=== PATIENT | male | born 1955 | race African-American/Black ===

== ENCOUNTER 2016-12-24 11:27 | Emergency (ER) | payer SELFPAY ==
[~2016-12-24] VITALS: Ht 180.3 cm; Wt 140.0 kg
[~2016-12-24 11:27] MED LIST: ZOFR4TAB3 SL
[2016-12-24 11:29] VITALS: BP 195/106; PULSE 92; RESP 20; TEMP 98.9; O2SAT 97
--- NOTE | 2016-12-24 11:38 | PD ---
Physical Exam Time Seen by Provider: 11:37 Narrative Pt presents to the ED for evaluation of left leg swelling for 1 week. Also has some pain in the leg. States he thinks it is related to medication. VSS. Patient awaiting bed placement. Data Data Last Documented VS Vital Signs Date Time Temp Pulse Resp B/P Pulse Ox O2 Delivery O2 Flow Rate FiO2 12/24/16 11:29 98.9 92 20 195/106 97 Room Air MDM Supervised Visit with JESSICA: America Cota Dec 24, 2016 11:37
[2016-12-24] MEDS ORDERED: METF500T PO (11:54)
[2016-12-24] MEDS ORDERED: LOSA50TA PO (11:54)
[2016-12-24] MEDS ORDERED: ALLO300T2 PO (11:54)
--- NOTE | 2016-12-24 12:03 | PD ---
HPI Chief Complaint: Edema Time Seen by Provider: 12:03 Travel History International Travel<30 days: No Contact w/Intl Traveler<30days: No Traveled to known affect area: No History of Present Illness HPI 61-year-old male presents to the ED for evaluation of 1 week history of left leg pain and swelling. Gradual onset. Patient states that the leg feels hot. He denies numbness, tingling, weakness, limitations to range of motion of the extremity. He denies chest pain, shortness of breath, palpitations. He can identify no acute injury. He thought it was related to gout. States that he recently changed blood pressure medications and thought it might be related to this. No treatment attempted at home. PFSH Past Medical History Cardiovascular Problems: Yes (HTN) Diabetes: Yes (TYPE II ) Patient Takes Glucophage: Yes (METFORMIN ) Gout: Yes Hypertension: Yes Past Surgical History Genitourinary Surgery: Yes (SCROTAL) Social History Alcohol Use: No Tobacco Use: Yes (1/2 PPD) Substance Use: No Allergies-Medications (Allergen,Severity, Reaction): Coded Allergies: No Known Allergies (Unverified , 12/24/16) Reported Meds & Prescriptions Reported Meds & Active Scripts Active Clindamycin (Clindamycin HCl) 150 Mg Cap 450 Mg PO Q8HR 7 Days Reported Losartan (Losartan Potassium) 50 Mg Tab 50 Mg PO DAILY Allopurinol 300 Mg Tab 300 Mg PO DAILY Metformin (Metformin HCl) 500 Mg Tab 500 Mg PO BIDPC With meals Review of Systems Except as stated in HPI: all other systems reviewed are Neg Physical Exam Narrative GENERAL: Well-nourished, well-developed pleasant, obese black male in no acute distress. SKIN: Focused skin assessment warm/dry. 1-2cm patch of healing crusts on the posterior aspect of the left calf. Nontender. No active bleeding. No discharge. HEAD: Normocephalic. EYES: No scleral icterus. No injection or drainage. NECK: Supple, trachea midline. No JVD or lymphadenopathy. CARDIOVASCULAR: Regular rate and rhythm without murmurs, gallops, or rubs. RESPIRATORY: Breath sounds clear and equal bilaterally. No accessory muscle use. GASTROINTESTINAL: Abdomen protuberant, soft, non-tender, nondistended. MUSCULOSKELETAL: No cyanosis, or edema. FOCUSED LEFT LOWER EXTREMITY EXAM: 2+ DP pulse. 2+ edema to the knee. The leg is erythematous, warm and tender. Homans sign positive. Neurovascularly intact. BACK: Nontender without obvious deformity. No CVA tenderness. Data Data Last Documented VS Vital Signs Date Time Temp Pulse Resp B/P Pulse Ox O2 Delivery O2 Flow Rate FiO2 12/24/16 12:55 97 Room Air 12/24/16 11:29 98.9 92 20 195/106 Orders Complete Blood Count With Diff (12/24/16 12:10) Comprehensive Metabolic Panel (12/24/16 12:10) B-Type Natriuretic Peptide (12/24/16 12:10) Act Partial Throm Time (Ptt) (12/24/16 12:10) Prothrombin Time / Inr (Pt) (12/24/16 12:10) Urinalysis - C+S If Indicated (12/24/16 12:10) Iv Access Insert/Monitor (12/24/16 12:10) Ecg Monitoring (12/24/16 12:10) Oximetry (12/24/16 12:10) Us Leg Venous Doppler (12/24/16 12:10) Sodium Chloride 0.9% Flush (Ns Flush) (12/24/16 12:15) Morphine Inj (Morphine Inj) (12/24/16 12:15) Sodium Chlorid 0.9% 500 Ml Inj (Ns 500 M (12/24/16 12:15) Clindamycin (Cleocin) (12/24/16 15:15) Labs Laboratory Tests Test 12/24/16 12:45 White Blood Count 9.9 TH/MM3 Red Blood Count 4.67 MIL/MM3 Hemoglobin 14.4 GM/DL Hematocrit 42.3 % Mean Corpuscular Volume 90.6 FL Mean Corpuscular Hemoglobin 30.9 PG Mean Corpuscular Hemoglobin 34.1 % Concent Red Cell Distribution Width 13.8 % Platelet Count 264 TH/MM3 Mean Platelet Volume 8.2 FL Neutrophils (%) (Auto) 65.4 % Lymphocytes (%) (Auto) 23.3 % Monocytes (%) (Auto) 8.0 % Eosinophils (%) (Auto) 2.6 % Basophils (%) (Auto) 0.7 % Neutrophils # (Auto) 6.5 TH/MM3 Lymphocytes # (Auto) 2.3 TH/MM3 Monocytes # (Auto) 0.8 TH/MM3 Eosinophils # (Auto) 0.3 TH/MM3 Basophils # (Auto) 0.1 TH/MM3 CBC Comment DIFF FINAL Differential Comment Prothrombin Time 10.7 SEC Prothromb Time International 1.0 RATIO Ratio Activated Partial 28.0 SEC Thromboplast Time Sodium Level 140 MEQ/L Potassium Level 3.7 MEQ/L Chloride Level 105 MEQ/L Carbon Dioxide Level 29.1 MEQ/L Anion Gap 6 MEQ/L Blood Urea Nitrogen 12 MG/DL Creatinine 1.03 MG/DL Estimat Glomerular Filtration 90 ML/MIN Rate Random Glucose 119 MG/DL Calcium Level 8.7 MG/DL Total Bilirubin 0.3 MG/DL Aspartate Amino Transf 17 U/L (AST/SGOT) Alanine Aminotransferase 22 U/L (ALT/SGPT) Alkaline Phosphatase 82 U/L B-Type Natriuretic Peptide 32 PG/ML Total Protein 7.6 GM/DL Albumin 2.8 GM/DL MDM Medical Decision Making Medical Screen Exam Complete: Yes Emergency Medical Condition: Yes Differential Diagnosis Cellulitis versus DVT versus dependent edema versus gout flare versus other Narrative Course 61-year-old male with PMH of DM, HTN, gout presents to the ED for evaluation of 1 week history of left leg pain and swelling. Gradual onset. Patient states that the leg feels hot. He can identify no acute injury. He thought it was related to gout or maybe his recently changed blood pressure medications. Vitals reviewed. Patient is hypertensive in triage but this resolves in the exam room. Physical exam reveals the left leg is warm, erythematous, edematous and the Homans sign is positive. There is a few well healed subcentimeter crusts on the posterior aspect of the leg. These do not look actively infected themselves but I suspect this is the source of the cellulitis. CBC, CMP, UA unremarkable. Ultrasound of the lower extremity negative for DVT. This is cellulitis of the extremity. Patient is instructed to keep the leg elevated. He is prescribed a course of clindamycin, first dose administered in the ED. He is instructed to follow up either here or at the [facility] in 48 hours for recheck. The patient indicated understanding of the instructions and is agreeable to the care plan. He is stable and discharged home. Diagnosis Primary Impression: Cellulitis of left lower extremity without foot Referrals: Primary Care Physician Patient Instructions: Cellulitis (ED), General Instructions Additional Instructions: Rest, hydrate. Keep the affected leg elevated as much as possible. Take antibiotics as they are prescribed, even if your symptoms resolved. [facility]. Return to the ED for any urgent or emergent medical condition. Med/Other Pt SpecificInfo: Prescription(s) given Scripts Clindamycin 150 Mg [id number] Mg PO Q8HR 7 Days Ref 0 Prov:Cecilia Cunningham MD 12/24/16 Disposition: 01 DISCHARGE HOME Condition: Stable Salome Gatica Dec 24, 2016 12:03
[2016-12-24] MEDS ORDERED: SODIUM CHLORIDE 0.9% FLUSH 10 ML FLUSH IVF PRN (12:15)
[2016-12-24] MEDS ORDERED: MORPHINE SULFATE 4 MG/ML INJ IV PUSH ONE (12:15)
[2016-12-24] MEDS ORDERED: SODIUM CHLORID 0.9% 500 ML INJ 500 ML IV ONE (12:15)
[2016-12-24 12:55] VITALS: O2SAT 97
--- NOTE | 2016-12-24 13:29 | RADRPT ---
EXAM DATE/TIME: 12/24/2016 12:40 [facility] COMPARISON: No previous studies available for comparison. INDICATIONS : Left leg edema and pain. MEDICAL HISTORY : Hypertension. Diabetes mellitus type 2. Gout. Tobacco use. SURGICAL HISTORY : Scrotal surgery. ENCOUNTER: Initial ACUITY: 1 week PAIN SCORE: 5/10 LOCATION: Left leg. TECHNIQUE: Venous ultrasound of the leg was performed from the inguinal ligament to the proximal calf. Real-ruthie e, color Doppler and spectral tracing, compression and augmentation techniques were used. FINDINGS: There is normal compressibility of the deep venous system from the inguinal region to the proximal ca lf. No echogenic clot is seen in the lumen of the common femoral, femoral, popliteal, and posterior tibial veins. There is a normal response of the venous system to proximal and distal augmentation an d respiration. There is nonspecific mildly prominent lymph nodes in the left groin. Largest measures 3.7 x 1.6 cm. CONCLUSION: No evidence of DVT. Juanpablo Schuster MD on December 24, 2016 at 13:26 Board Certified Radiologist. This report was verified electronically.
[2016-12-24 13:42] LABS: AUTOMATED NEUTROPHIL # 6.5 TH/MM3 (1.8-7.7); BASOPHIL # 0.1 TH/MM3 (0-0.2); BASOPHIL % 0.7 % (0.0-2.0); EOSINOPHIL # 0.3 TH/MM3 (0-0.4); EOSINOPHIL % 2.6 % (0.0-4.0); HEMATOCRIT 42.3 % (39.0-51.0); HEMO FLAGS DIFF FINAL; LYMPH % 23.3 % (9.0-44.0); LYMPHOCYTE # 2.3 TH/MM3 (1.0-4.8); MEAN CELL VOLUME 90.6 FL (80.0-100.0); MEAN CORPUSCULAR HEMOGLOBIN 30.9 PG (27.0-34.0); MEAN CORPUSCULAR HGB CONC 34.1 % (32.0-36.0); NEUT % 65.4 % (16.0-70.0); PLATELET COUNT 264 TH/MM3 (150-450); RED BLOOD COUNT 4.67 MIL/MM3 (4.50-5.90); RED CELL DISTRIBUTION WIDTH 13.8 % (11.6-17.2); WHITE BLOOD COUNT 9.9 TH/MM3 (4.0-11.0)
[2016-12-24 13:52] LABS: PROTHROMBIN TIME - PATIENT 10.7 SEC (9.8-11.6)
[2016-12-24 13:56] LABS: ANION GAP 6 MEQ/L (5-15); AST (GOT) 17 U/L (15-37); BICARBONATE 29.1 MEQ/L (21.0-32.0); BLOOD UREA NITROGEN 12 MG/DL (7-18); CHLORIDE 105 MEQ/L (98-107); GLOMERULAR FILTRATION RATE 90 ML/MIN (>89); POTASSIUM 3.7 MEQ/L (3.5-5.1); SODIUM (NA) 140 MEQ/L (136-145)
[2016-12-24 13:57] LABS: ALT (GPT) 22 U/L (12-78)
[2016-12-24 13:59] LABS: ALKALINE PHOSPHATASE 82 U/L (45-117); TOTAL BILIRUBIN ADULT 0.3 MG/DL (0.2-1.0)
[2016-12-24] MEDS ORDERED: SULFAMETHOXAZOLE-TRIMETHOPRIM DS 800-160 MG TAB PO ONE (15:00)
[2016-12-24] MEDS ORDERED: CEPHALEXIN MONOHYDRATE 500 MG CAP PO ONE (15:00)
[2016-12-24] MEDS ORDERED: CLIN1CAP5 PO (15:06)
[2016-12-24] MEDS ORDERED: CLINDAMYCIN 150 MG CAP PO SCH (15:15)
[2016-12-24] MEDS ORDERED: CLINDAMYCIN 150 MG CAP PO ONE (15:15)
[2016-12-24 15:30] VITALS: BP 122/73; PULSE 83
== END 2016-12-24 15:42 | disposition home or self-care (01) ==
LOC: NEPE 11:27
DX: L03.116 Cellulitis of left lower limb (principal); I10 Essential (primary) hypertension; E11.9 Type 2 diabetes mellitus without complications; F17.210 Nicotine dependence, cigarettes, uncomplicated; M10.9 Gout, unspecified
CPT/HCPCS: 80053; 83880; 85025; 85610; 85730; 93971

== ENCOUNTER 2017-01-11 10:41 | Emergency (ER) | payer OTHER ==
[~2017-01-11] VITALS: Ht 177.8 cm; Wt 160.0 kg
[~2017-01-11 10:41] MED LIST changes: +ALLO300T2 PO; +CLIN1CAP5 PO; +LOSA50TA PO; +METF500T PO; -ZOFR4TAB3 SL
[2017-01-11 10:43] VITALS: BP 198/100; PULSE 80; RESP 16; TEMP 98.4; O2SAT 95
[2017-01-11 10:49] VITALS: BP 165/80; TEMP 99.5
[2017-01-11] MEDS ORDERED: SODIUM CHLOR 0.9% 1000 ML INJ 1,000 ML IV SCH (11:21)
--- NOTE | 2017-01-11 11:28 | PD ---
HPI Chief Complaint: Skin Problem Time Seen by Provider: 11:15 Travel History International Travel<30 days: No Contact w/Intl Traveler<30days: No Traveled to known affect area: No History of Present Illness HPI This is a 61-year-old male with history of hypertension, diabetes, gout, presents for evaluation of left lower extremity pain and itching. Symptoms started 3 weeks ago. There is no injury. He believes that he may been bitten by a bug to the posterior proximal calf however he does not remember any bug bites or puncture wounds. The patient was seen for evaluation of this issue in December 24 and diagnosed with cellulitis. He is discharged with clindamycin for 7 days. He completed the antibiotics as scheduled. Initially symptoms seem to be improving over the past several days symptoms have worsened which prompted evaluation today. He has not had any fevers, chills or myalgias at home. He denies any chest pain, shortness of breath, nausea or vomiting, diarrhea or constipation, recent travel. [facility] No other complaints. PFSH Past Medical History Cardiovascular Problems: Yes (HTN) Diabetes: Yes Gout: Yes Hypertension: Yes Past Surgical History Genitourinary Surgery: Yes (SCROTAL) Social History Alcohol Use: No Tobacco Use: Yes (06/23 PPD) Substance Use: No Allergies-Medications (Allergen,Severity, Reaction): Coded Allergies: No Known Allergies (Unverified , 12/24/16) Reported Meds & Prescriptions Reported Meds & Active Scripts Active Doxycycline Hyclate 100 Mg Cap 100 Mg PO BID Reported Losartan (Losartan Potassium) 50 Mg Tab 50 Mg PO DAILY Allopurinol 300 Mg Tab 300 Mg PO DAILY Metformin (Metformin HCl) 500 Mg Tab 500 Mg PO BIDPC With meals Review of Systems Except as stated in HPI: all other systems reviewed are Neg Physical Exam Narrative GENERAL: Well-developed well-nourished male in no acute distress. SKIN: Warm and dry. The left calf and pretibial region is somewhat indurated and erythematous. There is dry cracking skin. There is areas of excoriation secondary to scratching. There is no fluctuance or purulent drainage. There is no tenderness to palpation to the thigh, knee, ankle or foot. HEAD: Atraumatic. Normocephalic. EYES: Pupils equal and round. No scleral icterus. No injection or drainage. ENT: No nasal bleeding or discharge. Mucous membranes pink and moist. NECK: Trachea midline. No JVD. CARDIOVASCULAR: Regular rate and rhythm. No murmur appreciated. RESPIRATORY: No accessory muscle use. Clear to auscultation. Breath sounds equal bilaterally. GASTROINTESTINAL: Abdomen soft, non-tender, nondistended. MUSCULOSKELETAL: No obvious deformities. Skin as noted above. 2+ dorsalis pedis pulse bilaterally. NEUROLOGICAL: Awake and alert. No obvious cranial nerve deficits. Motor grossly within normal limits. Normal speech. Data Data Last Documented VS Vital Signs Date Time Temp Pulse Resp B/P Pulse Ox O2 Delivery O2 Flow Rate FiO2 01/11/17 10:49 99.5 165/80 01/11/17 10:43 80 16 95 Orders Complete Blood Count With Diff (01/11/17 11:21) Comprehensive Metabolic Panel (01/11/17 11:21) Lactic Acid Sepsis Protocol (01/11/17 11:21) Blood Culture (01/11/17 11:21) Creatine Kinase (Cpk) (01/11/17 11:21) Iv Access Insert/Monitor (01/11/17 11:21) Sodium Chlor 0.9% 1000 Ml Inj (Ns 1000 M (01/11/17 11:21) Doxycycline (Vibramycin) (01/11/17 12:45) Labs Laboratory Tests Test 01/11/17 11:38 White Blood Count 6.2 TH/MM3 Red Blood Count 4.48 MIL/MM3 Hemoglobin 13.8 GM/DL Hematocrit 41.2 % Mean Corpuscular Volume 91.9 FL Mean Corpuscular Hemoglobin 30.8 PG Mean Corpuscular Hemoglobin 33.5 % Concent Red Cell Distribution Width 14.3 % Platelet Count 212 TH/MM3 Mean Platelet Volume 7.5 FL Neutrophils (%) (Auto) 57.4 % Lymphocytes (%) (Auto) 28.7 % Monocytes (%) (Auto) 9.3 % Eosinophils (%) (Auto) 3.9 % Basophils (%) (Auto) 0.7 % Neutrophils # (Auto) 3.6 TH/MM3 Lymphocytes # (Auto) 1.8 TH/MM3 Monocytes # (Auto) 0.6 TH/MM3 Eosinophils # (Auto) 0.2 TH/MM3 Basophils # (Auto) 0.0 TH/MM3 CBC Comment DIFF FINAL Differential Comment Sodium Level 139 MEQ/L Potassium Level 3.8 MEQ/L Chloride Level 101 MEQ/L Carbon Dioxide Level 30.5 MEQ/L Anion Gap 8 MEQ/L Blood Urea Nitrogen 8 MG/DL Creatinine 0.96 MG/DL Estimat Glomerular Filtration 97 ML/MIN Rate Random Glucose 133 MG/DL Lactic Acid Level 1.2 mmol/L Calcium Level 8.6 MG/DL Total Bilirubin 0.4 MG/DL Aspartate Amino Transf 15 U/L (AST/SGOT) Alanine Aminotransferase 18 U/L (ALT/SGPT) Alkaline Phosphatase 90 U/L Total Creatine Kinase 168 U/L Total Protein 8.3 GM/DL Albumin 2.7 GM/DL [facility] Medical Decision Making Medical Screen Exam Complete: Yes Emergency Medical Condition: Yes Medical Record Reviewed: Yes Differential Diagnosis Cellulitis, venous stasis dermatitis, myositis, dependent edema, contact dermatitis, DVT Narrative Course 61-year-old male presents with persistent pain and itching to the skin of the left lower extremity. Initially he was seeing some improvement during a 70 course of clindamycin however symptoms have worsened since then. In triage his temperature was 99.5.. His chart records from his visit on December 24. He had an ultrasound which was negative for DVT. His labwork was unremarkable. Plan today is for basic lab work, IV fluids, blood cultures. Lab work is unremarkable. At this point in time the plan would be to treat the patient with a longer course of antibiotics. He was offered admission given his worsening symptoms despite outpatient therapy argues declininghe reports that his is at another hospital being admitted for stroke. He is encouraged to follow-up with his primary care physician in 2-3 days for recheck and return for any worsening symptoms. He is being discharged with a 14 day course of doxycycline. Diagnosis Primary Impression: Cellulitis of left lower extremity without foot Additional Instructions: Take antibiotic as prescribed. Benadryl for itching. Avoid scratching. Keep the skin clean. Return for any new or worsening symptoms such as worsening swelling, worsening redness, fevers. Med/Other Pt SpecificInfo: Prescription(s) given Scripts Doxycycline Hyclate 100 Mg [id number] Mg PO BID #28 CAP Ref 0 Prov:Codi Ambriz MD 01/11/17 Disposition: 01 DISCHARGE HOME Condition: Stable Dakota Edmond Jan 11, 2017 11:28
[2017-01-11 12:05] LABS: AUTOMATED NEUTROPHIL # 3.6 TH/MM3 (1.8-7.7); BASOPHIL % 0.7 % (0.0-2.0); EOSINOPHIL # 0.2 TH/MM3 (0-0.4); EOSINOPHIL % 3.9 % (0.0-4.0); HEMATOCRIT 41.2 % (39.0-51.0); HEMO FLAGS DIFF FINAL; LYMPH % 28.7 % (9.0-44.0); LYMPHOCYTE # 1.8 TH/MM3 (1.0-4.8); MEAN CELL VOLUME 91.9 FL (80.0-100.0); MEAN CORPUSCULAR HEMOGLOBIN 30.8 PG (27.0-34.0); MEAN CORPUSCULAR HGB CONC 33.5 % (32.0-36.0); MONO % 9.3 % (0.0-8.0); NEUT % 57.4 % (16.0-70.0); PLATELET COUNT 212 TH/MM3 (150-450); RED BLOOD COUNT 4.48 MIL/MM3 (4.50-5.90); RED CELL DISTRIBUTION WIDTH 14.3 % (11.6-17.2); WHITE BLOOD COUNT 6.2 TH/MM3 (4.0-11.0)
[2017-01-11 12:29] LABS: ALT (GPT) 18 U/L (12-78); ANION GAP 8 MEQ/L (5-15); AST (GOT) 15 U/L (15-37); BICARBONATE 30.5 MEQ/L (21.0-32.0); BLOOD UREA NITROGEN 8 MG/DL (7-18); CHLORIDE 101 MEQ/L (98-107); GLOMERULAR FILTRATION RATE 97 ML/MIN (>89); POTASSIUM 3.8 MEQ/L (3.5-5.1); SODIUM (NA) 139 MEQ/L (136-145)
[2017-01-11 12:31] LABS: ALKALINE PHOSPHATASE 90 U/L (45-117); CREATINE KINASE 168 U/L (39-308); TOTAL BILIRUBIN ADULT 0.4 MG/DL (0.2-1.0)
[2017-01-11] MEDS ORDERED: DOXY100C PO (12:35)
[2017-01-11] MEDS ORDERED: DOXYCYCLINE HYCLATE 100 MG CAP PO ONE (12:45)
== END 2017-01-11 13:34 | disposition home or self-care (01) ==
LOC: NEPE 10:41
DX: L03.116 Cellulitis of left lower limb (principal); I10 Essential (primary) hypertension; E11.9 Type 2 diabetes mellitus without complications; M10.9 Gout, unspecified; F17.210 Nicotine dependence, cigarettes, uncomplicated
CPT/HCPCS: 80053; 82550; 83605; 85025; 87040; 96360; 99283; J7030